=== PATIENT | female | born 1995 | race Caucasian/White ===

== ENCOUNTER → 2021-12-07 11:18 | Outpatient (CLI) | payer OTHER, SELFPAY ==
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
== END ==
PROVIDERS: PCP Internal Medicine; Visit Provider Internal Medicine
DX: R51.9 Headache, unspecified (principal)
CPT/HCPCS: 70450